=== PATIENT | male | born 1940 | race Caucasian/White ===

== ENCOUNTER 2018-03-26 16:01 | Emergency (ER) | payer MEDICARE, OTHER ==
[~2018-03-26] VITALS: Ht 193 cm; Wt 81.6 kg
--- NOTE | 2018-03-26 16:16 | NUR ---
PATIENT TO ED C/O LEFT ARM SWELLING, PAIN WITH ABRASIONS S/P FALL YESTERDAY. NO KO REPORTED. PT IS AA0. VSS
[2018-03-26] MEDS ORDERED: ACETAMINOPHEN ES 500 MG TABLET ONE (16:52)
[2018-03-26] MEDS ORDERED: ACETAMINOPHEN 325 MG TABLET PO ONE (17:00)
[2018-03-26 18:03] VITALS: BP 135/82
--- NOTE | 2018-03-26 18:06 | NUR ---
For discharge. ACI given states understanding. Velcrosplint applied by EMT. VSS Discharged home ambulatory,stable
== END 2018-03-26 18:06 | disposition home or self-care (01) ==
LOC: ER 16:03
DX: M25.532 Pain in left wrist (principal); M18.12 Unilateral primary osteoarthritis of first carpometacarpal joint, left hand; E83.119 Hemochromatosis, unspecified; Z86.73 Personal history of transient ischemic attack (TIA), and cerebral infarction without residual deficits; W18.30XA Fall on same level, unspecified, initial encounter; Y93.89 Activity, other specified; Y92.89 Other specified places as the place of occurrence of the external cause; Y99.8 Other external cause status
CPT/HCPCS: 29125; 73110; 99284; A4606; Z7610

== ENCOUNTER 2020-11-04 23:22 | Inpatient (IN) | payer MEDICARE, OTHER ==
[~2020-11-04] VITALS: Ht 195.6 cm; Wt 73.0 kg
[2020-11-04 23:50] LABS: BASOPHILS # (AUTO) 0.1 /CMM (0.0-0.2); EOSINOPHILS % (AUTO) 3.9 % (0.0-6.0); HEMATOCRIT 43 % (39-51); HEMOGLOBIN 14.1 g/dL (13.5-17.5); LYMPHOCYTES # (AUTO) 1.1 /CMM (0.8-4.8); LYMPHOCYTES % (AUTO) 18.5 % (20.0-44.0); MEAN CORPUSCULAR HGB CONC 33 g/dl (31.0-36.0); MEAN CORPUSCULAR VOLUME 105 fL (80-96); MONOCYTES # (AUTO) 0.5 /CMM (0.1-1.30); MONOCYTES % (AUTO) 8.4 % (2.0-12.0); NEUTROPHILS % (AUTO) 68.2 % (43.0-81.0); PLATELET COUNT (AUTO) 161 /CMM (150-450); RED BLOOD CELL COUNT(AUTO) 4.07 MIL/uL (4.5-6.0); WHITE BLOOD COUNT (AUTO) 5.8 K/uL (4.3-11.0)
[2020-11-04 23:59] LABS: CALCIUM, SERUM 8.9 mg/dL (8.5-10.1); CARBON DIOXIDE 26 mmol/L (21-32); CHLORIDE 103 mmol/L (98-107); CREATININE 0.9 mg/dL (0.6-1.3); GLUCOSE 99 mg/dL (74-106); POTASSIUM 4.5 mmol/L (3.5-5.1); SODIUM SERUM 139 mmol/L (136-145); UREA NITROGEN, BLOOD 18 mg/dL (7-18)
[2020-11-05] MEDS ORDERED: IV NS 0.9% 500 ML BAG IV ONE
[2020-11-05 00:04] LABS: CHOLESTEROL 144 mg/dL (<200); HDL CHOLESTEROL 51 mg/dL (40-60); LDL 73 mg/dL (0-99); TRIGLYCERIDES 47 mg/dL (30-150)
[2020-11-05 00:13] LABS: ALANINE AMINOTRANSFERASE 22 U/L (12-78); ALBUMIN 3.6 g/dL (3.4-5.0); ALKALINE PHOSPHATASE 101 U/L (46-116); ASPARTATE AMINOTRANSFERASE 32 U/L (15-37); BILIRUBIN,DIRECT 0.2 mg/dL (0.0-0.2); BILIRUBIN,TOTAL 1.1 mg/dL (0.2-1.0); TOTAL PROTEIN, SERUM 7.8 g/dL (6.4-8.2)
--- NOTE | 2020-11-05 00:25 | NUR ---
DR SWEET FROM RADIOLOGY ON THE PHONE WITH DR WHEELER
--- NOTE | 2020-11-05 01:29 | NUR ---
TELE BED 120-1
--- NOTE | 2020-11-05 01:31 | NUR ---
BED ASSIGNMENT CHANGED TO 114-1
--- NOTE | 2020-11-05 01:50 | NUR ---
REPORT GIVEN TO RAÚL KAPOOR FOR CHANDU.
[2020-11-05] MEDS ORDERED: ACETAMINOPHEN 325 MG TABLET PO PRN (02:00)
[2020-11-05] MEDS ORDERED: ASPIRIN 325 MG TABLET PO ONE (02:00)
[2020-11-05] MEDS ORDERED: ENOXAPARIN SODIUM 40 MG/0.4 ML DISP.SYRIN SQ SCH (02:00)
[2020-11-05] MEDS ORDERED: HYDROCODONE/APAP 5/325MG TABLET PO PRN (02:00)
[2020-11-05] MEDS ORDERED: ENALAPRILAT INJ (1.25 MG/ML) 1.25 MG/ML VIAL IV PRN (02:00)
[2020-11-05] MEDS ORDERED: MAG HYDROX/AL HYDROX/SIMETH 30 ML UDC PO PRN (02:00)
--- NOTE | 2020-11-05 02:13 | NUR ---
PT WAS TRANSFERRED TO 114 UNDER ACLS
[2020-11-05 02:20] VITALS: BP 123/83
[2020-11-05] MEDS ORDERED: RIVA10TA PO (02:35)
--- NOTE | 2020-11-05 03:00 | NUR ---
RN NOTES PT ARRIVED TO UNIT VIA [facility] PT WAS TRANSFERRED BY STAFF FROM [facility] TO BED. PT ALERT AND ORIENTED X4. NO PAIN DISCOMFORT REPORTED OR NOTED. [facility] SCORE 0. PT HAS IV ACCESS ON THE LEFT AC PATENT INTACT FLUSHED WITH NS. NO PAIN SWELLING OR REDNESS NOTED AT THE SITE. PT ON TELE MONITOR. LUNG SOUNDS CLEAR UPON AUSCULTATION BOWEL SOUND ACTIVE AND PRESENT ON ALL FOUR QUADRANTS PT HAS BACK REDNESS AND SACRUM REDNESS AND LEFT LATERAL THIGH BRUISE. PICTURES TAKEN AND PLACED IN CHART. PT ORIENTED TO ROOM AND UNIT. ALL NURSING NEEDS MET ALL MEDS GIVEN AND TOLERATED WELL. CALL LIGHT PLACED WITHIN REACH. SAFETY PRECAUTIONS FOLLOWED WILL ENDORSE CARE TO DAY SHIFT NURSE.
[2020-11-05 03:41] LABS: BASOPHILS % (AUTO) 0.2 % (0.0-2.0); EOSINOPHILS % (AUTO) 2.5 % (0.0-6.0); HEMATOCRIT 38 % (39-51); LYMPHOCYTES # (AUTO) 1.2 /CMM (0.8-4.8); LYMPHOCYTES % (AUTO) 20.4 % (20.0-44.0); MEAN CORPUSCULAR HGB CONC 34 g/dl (31.0-36.0); MEAN CORPUSCULAR VOLUME 104 fL (80-96); MONOCYTES # (AUTO) 0.5 /CMM (0.1-1.30); MONOCYTES % (AUTO) 8.5 % (2.0-12.0); NEUTROPHILS # (AUTO) 3.9 /CMM (1.8-8.9); NEUTROPHILS % (AUTO) 68.4 % (43.0-81.0); PLATELET COUNT (AUTO) 140 /CMM (150-450); RED BLOOD CELL COUNT(AUTO) 3.65 MIL/uL (4.5-6.0); WHITE BLOOD COUNT (AUTO) 5.7 K/uL (4.3-11.0)
[2020-11-05 03:44] LABS: MAGNESIUM 1.7 mg/dL (1.8-2.4)
[2020-11-05 03:48] LABS: ALBUMIN 3.2 g/dL (3.4-5.0); BILIRUBIN,TOTAL 0.9 mg/dL (0.2-1.0); CALCIUM, SERUM 8.4 mg/dL (8.5-10.1); POTASSIUM 4.1 mmol/L (3.5-5.1); TOTAL PROTEIN, SERUM 6.7 g/dL (6.4-8.2)
[2020-11-05 03:58] LABS: THYROID STIMULATING HORMONE 2.066 uIU/mL (0.358-3.74)
[2020-11-05 05:54] VITALS: BP 148/83
[2020-11-05] MEDS: BLOOD SUGAR DIAGNOSTIC 1 EACH STRIP IN SCH ×3 (06:08→17:39)
[2020-11-05] MEDS ORDERED: METO25TA4 PO (06:57)
[2020-11-05] MEDS ORDERED: ATOR80TA PO (06:57)
--- NOTE | 2020-11-05 07:15 | NUR ---
RN OPENING NOTE RECEIVED PATIENT IN BED, RESTING. PT ALERT & ORIENTED X4; ABLE TO MAKE NEEDS KNOWN. NO PAIN OR DISCOMFORT REPORTED AT THIS TIME. NIHSS 0. PATIENT HAS IV ACCESS ON LEFT AC, PATENT AND INTACT. FLUSHED WITH NS. PATIENT ON TELE MONITOR; NSR AT THIS TIME. ALL SAFETY MEASURES IN PLACE PER HOSPITAL POLICY. CALL LIGHT PLACED WITHIN REACH. BED LOCKED IN LOWEST POSITION. WILL CONTINUE TO MONITOR AND PROVIDE TREATMENT.
[2020-11-05 08:00] VITALS: BP 145/92
[2020-11-05] MEDS: ASPIRIN 81 MG TAB.CHEW PO SCH (08:06)
[2020-11-05] MEDS: DOCUSATE SODIUM 100 MG CAPSULE PO SCH (08:06)
--- NOTE | 2020-11-05 08:07 | NUR ---
med recon nurse notes pt denies taking atorvastatin 80mg, says i don't take it.
[2020-11-05] MEDS: RIVAROXABAN 10 MG TABLET PO SCH (08:08)
[2020-11-05] MEDS ORDERED: RIVAROXABAN 10 MG TABLET PO SCH (09:00)
[2020-11-05 12:00] VITALS: BP 142/73
[2020-11-05] MEDS: Magnesium 1GM/D5W 100ML PREMIX 100 ML IV SCH ×2 (12:00→13:00)
[2020-11-05 16:00] VITALS: BP 134/84
--- NOTE | 2020-11-05 18:57 | NUR ---
RN CLOSING NOTE PATIENT IN BED, RESTING. PT ALERT & ORIENTED X4; ABLE TO MAKE NEEDS KNOWN. NO PAIN OR DISCOMFORT REPORTED AT THIS TIME. NIHSS 0. PATIENT HAS IV ACCESS ON LEFT AC, PATENT AND INTACT. FLUSHED WITH NS. PATIENT ON TELE MONITOR; NSR AT THIS TIME. ALL SAFETY MEASURES IN PLACE PER HOSPITAL POLICY. CALL LIGHT PLACED WITHIN REACH. BED LOCKED IN LOWEST POSITION. WILL ENDORSE TO ENTRY LEVEL LAB TECHNICIAN NURSE FOR CHANDU.
--- NOTE | 2020-11-05 19:40 | NUR ---
TELE/RN OPENING NOTE RECEIVED PATIENT RESTING IN BED. AWAKE, ALERT AND ORIENTED X 4. ABLE TO MAKE NEEDS KNOWN. NO COMPLAINTS OF PAIN AT THIS TIME. NIHSS SCORE 0. IV ACCESS TO LEFT AC INTACT, PATENT AND SALINE LOCKED. PATIENT WAS ANXIOUS STATING HE NEEDS TO GO HOME FOR A FAMILY MEETING. SAT WITH PATIENT AND EDUCATED ON PROS AND CONS OF LEAVING WITH PATIENT AGREEING TO STAY THE NIGHT. PATIENT CALM AT THIS TIME WITH RESPIRATIONS EVEN AND UNLABORED. CONTINUES ON ROOM AIR. CALL LIGHT WITHIN REACH. ASPIRATION, FALL AND SAFETY PRECAUTIONS MAINTAINED. WILL CONTINUE TO MONITOR.
[2020-11-05 20:00] VITALS: BP 122/68
[2020-11-05] MEDS ORDERED: MAGNESIUM OXIDE 400 MG TABLET PO ONE (20:00)
[2020-11-06] VITALS: BP 135/79
[2020-11-06] MEDS: BLOOD SUGAR DIAGNOSTIC 1 EACH STRIP IN SCH ×3 (00:09→11:57)
[2020-11-06 04:00] VITALS: BP 135/83
--- NOTE | 2020-11-06 05:00 | NUR ---
TELE/RN NOTE COLLECTED CLEAN CATCH URINE SAMPLE FROM URINAL. PLACED IN FRIDGE.
[2020-11-06 06:14] LABS: BASOPHILS % (AUTO) 0.6 % (0.0-2.0); HEMATOCRIT 39 % (39-51); HEMOGLOBIN 13.3 g/dL (13.5-17.5); LYMPHOCYTES # (AUTO) 1.3 /CMM (0.8-4.8); LYMPHOCYTES % (AUTO) 21.5 % (20.0-44.0); MEAN CORPUSCULAR HGB CONC 35 g/dl (31.0-36.0); MEAN CORPUSCULAR VOLUME 103 fL (80-96); MONOCYTES # (AUTO) 0.6 /CMM (0.1-1.30); MONOCYTES % (AUTO) 10.6 % (2.0-12.0); NEUTROPHILS # (AUTO) 3.9 /CMM (1.8-8.9); NEUTROPHILS % (AUTO) 64.3 % (43.0-81.0); PLATELET COUNT (AUTO) 140 /CMM (150-450); RED BLOOD CELL COUNT(AUTO) 3.74 MIL/uL (4.5-6.0); WHITE BLOOD COUNT (AUTO) 6.1 K/uL (4.3-11.0)
--- NOTE | 2020-11-06 06:20 | NUR ---
TELE/RN CLOSING NOTE PATIENT CURRENTLY SLEEPING IN BED. ALERT AND ORIENTED X 4. ABLE TO MAKE NEEDS KNOWN. NO COMPLAINTS OF PAIN AT THIS TIME. NIHSS SCORE 0. IV ACCESS TO LEFT AC INTACT, PATENT AND SALINE LOCKED. RESPIRATIONS EVEN AND UNLABORED. CONTINUES ON ROOM AIR. BLOOD GLUCOSE THIS AM IS 78. CALL LIGHT WITHIN REACH. ASPIRATION, FALL AND SAFETY PRECAUTIONS MAINTAINED. WILL ENDORSE PLAN OF CARE TO ONCOMING SHIFT.
[2020-11-06 06:45] LABS: CALCIUM, SERUM 8.1 mg/dL (8.5-10.1)
[2020-11-06 07:04] LABS: CREATININE 0.8 mg/dL (0.6-1.3)
[2020-11-06 08:00] VITALS: BP 109/77
[2020-11-06] MEDS: ASPIRIN 81 MG TAB.CHEW PO SCH (08:34)
[2020-11-06] MEDS: DOCUSATE SODIUM 100 MG CAPSULE PO SCH (08:34)
[2020-11-06] MEDS: RIVAROXABAN 10 MG TABLET PO SCH (08:36)
[2020-11-06 08:49] LABS: BILIRUBIN,URINE NEGATIVE (NEGATIVE); COLOR,URINE YELLOW (YELLOW); LEUKOCYTE ESTERASE ,URINE NEGATIVE (NEGATIVE); NITRITE, URINE NEGATIVE (NEGATIVE); PROTEIN,URINE TRACE mg/dl (NEGATIVE); UGLUCOSE NEGATIVE (NEGATIVE); UROBILINOGEN,URINE 0.2 EU/dL (0.2)
[2020-11-06 09:57] LABS: BACTERIA,URINE Few /HPF (None Seen); RBC,URINE 0-2 /HPF (0-2); SQUAMOUS EPITHELIAL CELL,UR Rare /HPF (None Seen); URINE AMORPHOUS URATE Few /HPF (None Seen)
[2020-11-06] MEDS ORDERED: ASPI-1169 PO (10:08)
[2020-11-06 12:00] VITALS: BP 146/83
--- NOTE | 2020-11-06 13:05 | NUR ---
Public Services Assistant Consult: human resources services specialist consult requested for stroke. Per chart, patient was brought to the hospital on 11/05/2020 for a transient ischemic attack. Patient is an 80-year-old, male. SW met with the patient in his hospital room on the [facility] surgical unit. Patient was alert and oriented x4. Patient was calm and listening to the news. Patient is currently living at [address] [place] [address]. [address] [place] [id number]; [phone]. Patient stated that this residence is an assisted living facility ([facility]). SW asked the patient if he has a history of stroke and patient stated that he has had one stroke in the past. SW discussed social support with the patient and patient stated that he does not have support but is independent with his ADLs. SW asked the patient about any sources of income and the patient stated that he receives income from Social Security and intermediate. Patient stated he has no history of mental illness or substance use. Patient denies any current suicidal or homicidal ideations. SW administered the PHQ-9 assessment. Patient scored 0 on the PHQ-9. SW provided informational material on stroke, Empowerment After Stroke. Patient accepted the packet, and thanked SW for the resource. Discharge plans discussed with the patient, and patient stated he will return to his prior living arrangements. PLAN: Patient stated he will return to his prior living arrangements at the time of discharge. No further SS interventions at this time, however SW will remain available as needed.
--- NOTE | 2020-11-06 14:20 | NUR ---
DISCHARGE NOTE PATIENT DISCHARGED VIA AMBULANCE TO [facility]. PATIENT IS STABLE, NO PAIN OR DISTRESS NOTED. ABLE TO STAND WITH ASSISTANCE, WALKS WITH CANE. REPORT GIVEN TO HUBERT. IV REMOVED, DRESSING APPLIED. WRISTBAND REMOVED. ALL EXITCARE AND EDUCATION GONE OVER WITH PATIENT, PACKET GIVEN TO EMT'S. PATIENT ACCOMPANIED BY TWO EMT'S.
[2020-11-06] MEDS ORDERED: MAGNESIUM OXIDE 400 MG TABLET PO ONE (20:00)
== END 2020-11-06 15:18 | DRG 69 ==
LOC: ER 23:24 → TELE1 11-05 01:30
PROVIDERS: ADMIT Internal Medicine; ATTEND Internal Medicine
DX: G45.9 Transient cerebral ischemic attack, unspecified (principal); I69.354 Hemiplegia and hemiparesis following cerebral infarction affecting left non-dominant side; I48.91 Unspecified atrial fibrillation; I10 Essential (primary) hypertension; Z96.653 Presence of artificial knee joint, bilateral; E83.119 Hemochromatosis, unspecified; E78.5 Hyperlipidemia, unspecified; M19.90 Unspecified osteoarthritis, unspecified site; G93.89 Other specified disorders of brain
CPT/HCPCS: 36415; 70450-TC; 70551-TC; 71045-TC; 80048-TC; 80053-TC; 80061-TC; 80076-TC; 81001; 82962-TC; 83735-TC; 84443-TC; 84484-TC; 85025-TC; 85730-TC; 87081-TC; 92526; 92611-TC; 93307-TC; 93880-TC; 97112-TC; 97116-TC; 97530-TC; 97535-TC; C9803; G0378; J7030; J7040

== ENCOUNTER 2022-06-13 18:23 | Emergency (ER) | payer MEDICARE, OTHER ==
[~2022-06-13] VITALS: Ht 198.1 cm; Wt 74.4 kg
[~2022-06-13 18:23] MED LIST: ASPI-1169 PO; METO25TA4 PO; RIVA10TA PO
[2022-06-13] MEDS ORDERED: DIATR MEGLU/DIATRIZOATE SODIUM 30 ML BOTTLE (GASTROGRAPHIN) ONE (21:00)
--- NOTE | 2022-06-13 21:22 | NUR ---
x-ray done with gastrografin
[2022-06-13 21:42] VITALS: BP 125/81
--- NOTE | 2022-06-13 21:42 | NUR ---
dc back to snf in no distress, GT placed and okay to use.
== END 2022-06-13 21:42 ==
LOC: ER 19:02
DX: Z43.1 Encounter for attention to gastrostomy (principal); I10 Essential (primary) hypertension; I48.91 Unspecified atrial fibrillation; Z96.653 Presence of artificial knee joint, bilateral; Z79.899 Other long term (current) drug therapy
CPT/HCPCS: 99284; 43762; 74018; Q9963